=== PATIENT | male | born 1960 | race Caucasian/White ===

== ENCOUNTER 2021-10-31 11:27 | Outpatient (CLI) | payer OTHER, SELFPAY ==
[2021-10-31 14:15] LABS: Chlamydia DNA Amplified* NOT DETECTED (No Detected); GC DNA Amplified* NOT DETECTED (No Detected)
[2021-10-31 14:51] LABS: HIV 1/2/P24 Combo Screen* Negative (Negative)
[2021-10-31 14:58] LABS: Hepatitis C Virus Antibody* Negative (Negative)
[2021-11-01 18:47] LABS: Testosterone, Adult Male 377 ng/dL (300-720)
== END 2021-10-31 11:28 | disposition home or self-care (01) ==
PROVIDERS: PCP Family Medicine; Visit Provider Family Medicine
DX: E29.1 Testicular hypofunction (principal); Z11.3 Encounter for screening for infections with a predominantly sexual mode of transmission
CPT/HCPCS: 84403; 86703; 86803; 87491; 87591

== ENCOUNTER 2022-10-01 08:21 | Outpatient (CLI) | payer OTHER, SELFPAY | END 2022-10-01 08:22 | disposition home or self-care (01) | PROVIDERS: PCP Family Medicine; Visit Provider Nurse Practitioner Family | DX: Z00.00 Encounter for general adult medical examination without abnormal findings (principal); E78.5 Hyperlipidemia, unspecified; I10 Essential (primary) hypertension; Z12.5 Encounter for screening for malignant neoplasm of prostate | CPT/HCPCS: 80053; 80061; 84153 ==

== ENCOUNTER 2022-11-23 07:24 | Outpatient (CLI) | payer OTHER, SELFPAY ==
--- NOTE | 2022-11-23 07:15 | CRLHL7_ITS ---
For Patients: As a result of the Century Cures Act, medical imaging exams and procedure reports are released immediately into your electronic medical record. You may view this report before your referring provider. If you have questions, please contact your health care provider. INDICATION: Cervical spondylosis. TECHNIQUE: Sagittal T1, sagittal and axial T2 and sagittal STIR images are obtained. COMPARISON: Cervical spine radiographs dated 09/14/2018. FINDINGS: The mild multilevel cervical spondylosis. Relative straightening of the usual cervical curve. There is mild degenerative anterolisthesis of C4 on C5. The lower brainstem the cervical upper thoracic spinal cord appear intrinsically normal. Incidental osseous hemangioma at the T2 level has doubtful significance. Lower brainstem cervical upper thoracic spinal cord appear intrinsically normal. No stenosis of the foramen magnum level C1 or C2 levels. At C2-3 right or side facet ankylosis. No disc herniation or stenosis of the spinal canal or neural foramen. At C3-4 mild annular bulge. Right uncinate process hypertrophy and facet enlargement results in moderate right neural foraminal stenosis. Spinal canal and left neural foramina adequately patent. At C4-5 a broad-based posterior disc bulge and endplate osteophyte formation with left side uncinate process hypertrophy and facet enlargement results in moderate left bony foraminal narrowing. Spinal canal is adequately patent. Mild right neural foraminal narrowing. At C5-6 degenerative disc space narrowing with mild circumferential marginal spur formation moderate left and mild right bony foraminal narrowing. Mild central canal narrowing without cord impingement. At C6-7 mild diffuse disc bulging and marginal spurring without stenosis of the spinal canal are mild to moderate bilateral neural foraminal narrowing. At C7-T1 no disc herniation or stenosis of the spinal canal or neural foramen. Incompletely seen in the upper thoracic spine at the T2-3 level there is a shallow broad posterior disc bulge/protrusion. IMPRESSION: 1. Multilevel spondylosis in the cervical and upper thoracic spine. 2. At C5-6 mild central canal stenosis without cord impingement. 3. Neural foraminal narrowing is noted bilaterally at C6-7, left greater than right at C5-6, C4-5 and right greater than left at C3-4. 4. Normal appearing cervical spinal cord. Dictated by Devante Franco MD @ 11/23/2022 11:13:46 AM (Electronically Signed)
== END 2022-11-23 07:25 | disposition home or self-care (01) ==
LOC: MRI 07:24
PROVIDERS: PCP Family Medicine; Visit Provider Family Medicine
DX: M47.812 Spondylosis without myelopathy or radiculopathy, cervical region (principal); M48.02 Spinal stenosis, cervical region; M50.223 Other cervical disc displacement at C6-C7 level; M50.222 Other cervical disc displacement at C5-C6 level; M50.221 Other cervical disc displacement at C4-C5 level
CPT/HCPCS: 72141

== ENCOUNTER 2023-01-21 08:07 | Outpatient (CLI) | payer OTHER, SELFPAY ==
--- NOTE | 2023-01-21 08:15 | MR_ITS ---
[address] [address] Phone:?[phone] Fax:?[phone] Referring Physician Information: Lukasz Smith M.D. [id number] [facility] [address] Phone:?[phone] Fax:?[phone] Patient:Terry Jimenez D.O.B:?1960 Sex:?Male Phone:?[phone] [facility] MRN:?[id number] Exam Date:?01/21/2023 EXAM: MRI EXAMINATION OF THE RIGHT KNEE CLINICAL INFORMATION: Right knee pain. No history of surgery to this area. Evaluate lateral sided pain. TECHNICAL INFORMATION: Coronal PD and STIR. Axial PD and T2 fat saturation. Sagittal PD and PD fat saturation images acquired. No prior studies for comparison. INTERPRETATION: Bones: [Localized mild subchondral edema signal posterior lateral to the mid surface of the medial femoral condyle. Irregularity, deformity, spurring and cystic change involves the tibial tubercle. There is a chronic 3 cm ossific fragment just cranial to this as well. There is no evidence of acute fracture. No other abnormal bone marrow edema pattern is identified. Ligaments and tendons: The medial collateral ligament is intact, without acute sprain or tear. The iliotibial band, fibular collateral ligament, biceps femoris tendon and popliteus tendon all are intact. The anterior cruciate ligament is intact without acute sprain or tear. The posterior cruciate ligament is intact. Extensor Mechanism: The patellar and quadriceps tendons are intact. There are chronic slender ossific fragments within the distal patellar tendon. Associated deep fiber fraying/poorly defined partial tearing involves the distal one fourth of the patellar tendon. The medial and lateral retinacula are intact. Knee Joint: There is no knee joint effusion. There is a small and slender popliteal cyst. There is no discrete loose body seen within the joint. Medial Compartment: There is a slender appearance of horizontal intrasubstance signal within the medial meniscus. This signal closely approaches and does appear to extend as undersurface tear at the junction of mid and inner one third portion of the posterior horn. No displaced flap fragment or parameniscal cyst. There is a 1.2 cm segment of grade 3 to IV chondromalacia posterior lateral to the mid surface of the medial femoral condyle. Mild chondral thinning elsewhere of the medial compartment. Lateral Compartment: There is no evidence for discrete lateral meniscal tear. No displaced flap fragment or parameniscal cyst. There is a 0.9 x 0.4 cm segment of grade II to III chondromalacia posterior to the mid surface of the lateral tibial plateau. No other significant changes of chondromalacia. Patellofemoral articulation: There is no focal chondral defect. No other significant chondromalacia. CONCLUSION: 1. Slender horizontal signal is identified within the medial meniscus. This closely approaches and appears to extend as undersurface tear within the posterior horn. No flap fragment or parameniscal cyst. 2. Mild chondral thinning of the medial compartment. There is a small superimposed segment of grade III to IV chondromalacia with mild subchondral edema signal posterior lateral to the mid surface of the femoral condyle. 3. No lateral meniscal tear. There is a small segment of grade II to III chondromalacia of the tibial plateau. 4. 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 Marked irregularity, deformity and spurring of the tibial tubercle with adjacent chronic ossific fragment. Slender chronic ossific fragments within the adjacent patellar tendon. Deep fiber fraying/poorly defined partial tearing involves the distal one fourth of the patellar tendon. 5. The cruciate ligaments are intact. No other residua of a ligament injury involving the knee. KES Electronically signed on 01/21/2023 9:58:00 AM by Sebastian Olivares M.D.
== END 2023-01-21 08:08 | disposition home or self-care (01) ==
LOC: MRI 08:08
PROVIDERS: PCP Family Medicine; Visit Provider Orthopaedic Surgery
DX: M25.561 Pain in right knee (principal); S83.241A Other tear of medial meniscus, current injury, right knee, initial encounter; M94.261 Chondromalacia, right knee; S86.811A Strain of other muscle(s) and tendon(s) at lower leg level, right leg, initial encounter
CPT/HCPCS: 73721

== ENCOUNTER 2023-02-10 08:00 | Outpatient (RCR) | payer OTHER, SELFPAY | END 2023-04-27 16:30 | disposition home or self-care (01) | PROVIDERS: PCP Family Medicine; Visit Provider Family Medicine | DX: M47.812 Spondylosis without myelopathy or radiculopathy, cervical region (principal); M50.30 Other cervical disc degeneration, unspecified cervical region; M25.561 Pain in right knee; M89.8X7 Other specified disorders of bone, ankle and foot; Z51.89 Encounter for other specified aftercare | CPT/HCPCS: 97110; 97140; 97162 ==

== ENCOUNTER 2023-04-02 13:00 | Outpatient (RCR) | payer OTHER, SELFPAY | END 2023-05-25 14:38 | disposition home or self-care (01) | PROVIDERS: PCP Family Medicine; Visit Provider Orthopaedic Surgery | DX: M70.71 Other bursitis of hip, right hip (principal); M70.72 Other bursitis of hip, left hip; Z51.89 Encounter for other specified aftercare; M76.891 Other specified enthesopathies of right lower limb, excluding foot | CPT/HCPCS: 97110; 97140; 97162; 97164 ==

== ENCOUNTER 2023-07-12 10:49 | Outpatient (CLI) | payer OTHER, SELFPAY | END 2023-07-12 10:50 | disposition home or self-care (01) | PROVIDERS: PCP Family Medicine; Visit Provider Family Medicine | DX: R19.7 Diarrhea, unspecified (principal); Z13.228 Encounter for screening for other metabolic disorders | CPT/HCPCS: 80053; 83690 ==

== ENCOUNTER 2023-07-21 10:14 | Outpatient (CLI) | payer OTHER, SELFPAY ==
--- NOTE | 2023-07-21 10:15 | US_ITS ---
Patient: MONAE SANCHEZ Facility:?[facility] Patient ID:?[id number] Site Patient ID:?[id number]. Site :?1960 Study:?US-Abdomen RUQ-07/21/2023 10:59:54 AM Ordering Physician:?cruz flowers Final Report: INDICATION: Diarrhea and abdominal pain TECHNIQUE: Ultrasound abdomen limited. Sonographic images of the right upper quadrant were obtained using grady-scale and color Doppler images. COMPARISON: 04/28/[address] FINDINGS: Liver: Normal in size and echotexture. No masses. No intrahepatic biliary dilatation. Gallbladder: No stones or sludge. Normal wall thickness. No pericholecystic fluid. Common bile duct: 6 mm. Pancreas: Normal where visible. Right kidney: Normal in size. Normal echotexture and cortex. Incidental benign simple cyst. No suspicious masses, stones, or hydronephrosis. Vasculature: Proximal abdominal aorta and IVC are normal. IMPRESSION: Unremarkable right upper quadrant ultrasound. Dictated by Ahmet Polanco MD @ 07/21/2023 2:19:45 PM Signed by:?Ahmet Polanco MD @07/21/2023 2:19:45 PM (Electronic Signature)
== END 2023-07-21 10:15 | disposition home or self-care (01) ==
PROVIDERS: PCP Family Medicine; Visit Provider Family Medicine
DX: R10.9 Unspecified abdominal pain (principal); R19.7 Diarrhea, unspecified
CPT/HCPCS: 76705

== ENCOUNTER 2023-08-09 09:55 | Outpatient (CLI) | payer OTHER, SELFPAY ==
--- NOTE | 2023-08-09 10:00 | CT_ITS ---
Patient: MONAE SANCHEZ Facility:?[facility] Patient ID:?[id number] Site Patient ID:?[id number]. Site :?1960 Study:?CT-Abdomen/Pelvis W/IV AND WATER PREP-08/09/2023 10:45:41 AM Ordering Physician:CANDI Final Report: Indication: RIGHT UPPER QUADRANT /LEFT LOWER QUADRANT PAINFOR YEARS Diarrhea AND NAUSEA Technique: ABDOMEN PELVIS CT WITH ISOVUE 370 98CC CONTRAST AND WATER PREP Please note that all CT scans at this facility use dose modulation, iterative reconstruction, and/or weight-based dosing when appropriate to reduce radiation dose to as low as reasonably achievable. Comparison: 04/28/2011 CT, 07/21/2023 ultrasound Findings: Lung bases are clear. Tiny intrahepatic cysts are present. Focal fat deposition within the liver adjacent to the falciform ligament noted. The spleen is normal. Adrenal glands are unremarkable. No hydronephrosis. Exophytic cyst arises from the lateral right kidney measuring 2.8 cm. Atherosclerotic changes. Gallbladder normal. No biliary obstruction. Normal pancreas. Unremarkable stomach. Bladder appears normal. Prostate is heterogeneous. Mild diverticulosis. No acute inflammation. No bowel obstruction. Normal appendix. No free air, free fluid or abscess. Stable subcentimeter retroperitoneal lymph nodes. Bone island is present within the left sacrum chronic wedging of L1 and T11. Impression: Mild colonic diverticulosis. No evidence of diverticulitis. Simple exophytic cyst right kidney. Tiny 5 millimeter or less cysts throughout the liver. No biliary obstruction or calcified gallstones. Please note that all CT scans at this facility use dose modulation, iterative reconstruction, and/or weight-based dosing when appropriate to reduce radiation dose to as low as reasonably achievable. Dictated by Evangelista Mcmahan MD @ 08/09/2023 11:52:23 AM Signed by:?Evangelista Mcmahan MD @08/09/2023 11:52:23 AM (Electronic Signature)
== END 2023-08-09 09:56 | disposition home or self-care (01) ==
LOC: CT 09:56
PROVIDERS: PCP Family Medicine; Visit Provider Internal Medicine
DX: R10.11 Right upper quadrant pain (principal); K57.30 Diverticulosis of large intestine without perforation or abscess without bleeding; N28.1 Cyst of kidney, acquired; K76.89 Other specified diseases of liver; R11.2 Nausea with vomiting, unspecified; R10.32 Left lower quadrant pain
CPT/HCPCS: 74177; Q9967

== ENCOUNTER 2023-10-25 14:30 | Outpatient (RCR) | payer OTHER, SELFPAY | END 2023-12-23 15:49 | disposition home or self-care (01) | PROVIDERS: PCP Family Medicine; Visit Provider Orthopaedic Surgery | DX: M76.31 Iliotibial band syndrome, right leg (principal); M25.561 Pain in right knee; Z51.89 Encounter for other specified aftercare | CPT/HCPCS: 97110; 97112; 97140; 97161 ==